=== PATIENT | female | born 1950 | race Native Hawaiian/Other Pacific Islander ===

== ENCOUNTER 2016-10-24 07:21 | Day surgery (SDC) | payer OTHER ==
[~2016-10-24] VITALS: Ht 165.1 cm; Wt 72.6 kg
== END 2016-10-24 11:22 | disposition home or self-care (01) ==
LOC: OR 07:21
PROC: 0DBM8ZZ Excision of Descending Colon, Via Natural or Artificial Opening Endoscopic (ICD-10-PCS; principal; 2016-10-24)
PROC: 0DBK8ZZ Excision of Ascending Colon, Via Natural or Artificial Opening Endoscopic (ICD-10-PCS; 2016-10-24)
PROC: 0DBP8ZZ Excision of Rectum, Via Natural or Artificial Opening Endoscopic (ICD-10-PCS; 2016-10-24)
PROC: 0DBN8ZZ Excision of Sigmoid Colon, Via Natural or Artificial Opening Endoscopic (ICD-10-PCS; 2016-10-24)
DX: D12.2 Benign neoplasm of ascending colon (principal); D12.4 Benign neoplasm of descending colon; D12.5 Benign neoplasm of sigmoid colon; K62.1 Rectal polyp; K64.8 Other hemorrhoids; Z86.010 Personal history of colon polyps; Z12.11 Encounter for screening for malignant neoplasm of colon
CPT/HCPCS: J2704

== ENCOUNTER 2017-02-28 08:47 | Outpatient (CLI) | payer OTHER | END 2017-02-28 19:01 | disposition home or self-care (01) | LOC: RESP 08:47 | DX: J44.1 Chronic obstructive pulmonary disease with (acute) exacerbation (principal) | CPT/HCPCS: 94640; 94664 ==

== ENCOUNTER 2018-07-08 08:05 | Day surgery (SDC) | payer OTHER ==
[~2018-07-08] VITALS: Ht 30.5 cm; Wt 0.5 kg
== END 2018-07-08 10:31 | disposition home or self-care (01) ==
LOC: OR 08:05
PROC: 08RK3JZ Replacement of Left Lens with Synthetic Substitute, Percutaneous Approach (ICD-10-PCS; principal; 2018-07-08)
DX: H25.812 Combined forms of age-related cataract, left eye (principal)
CPT/HCPCS: 66984; J0171; J2250; V2632

== ENCOUNTER 2019-04-08 07:59 | Outpatient (CLI) | payer OTHER ==
[~2019-04-08] VITALS: Ht 157.5 cm; Wt 76.2 kg
== END 2019-04-08 20:56 | disposition home or self-care (01) ==
LOC: NM 07:59
DX: I25.10 Atherosclerotic heart disease of native coronary artery without angina pectoris (principal)
CPT/HCPCS: A9500; J2785

== ENCOUNTER 2020-07-27 09:18 | Outpatient (CLI) | payer OTHER ==
[~2020-07-27] VITALS: Ht 157.5 cm; Wt 76.2 kg
== END 2020-07-27 22:24 | disposition home or self-care (01) ==
LOC: NM 09:18
PROVIDERS: ATTEND Specialist
DX: Z01.818 Encounter for other preprocedural examination (principal); I25.10 Atherosclerotic heart disease of native coronary artery without angina pectoris
CPT/HCPCS: A9500; J2785

== ENCOUNTER 2022-05-24 18:44 | Emergency (ER) | payer OTHER ==
[~2022-05-24] VITALS: Ht 152.4 cm; Wt 65.8 kg
[2022-05-24 18:55] VITALS: TEMP 97.9
[2022-05-24 20:00] VITALS: BP 178/98
== END 2022-05-24 21:14 | disposition home or self-care (01) ==
LOC: ED 18:44
DX: S70.02XA Contusion of left hip, initial encounter (principal); W01.0XXA Fall on same level from slipping, tripping and stumbling without subsequent striking against object, initial encounter; Y92.89 Other specified places as the place of occurrence of the external cause
CPT/HCPCS: 99283